=== PATIENT | female | born 1990 | race Hispanic/Latino ===

== ENCOUNTER 2019-10-04 05:17 | Emergency (ER) | payer MEDICAID ==
[2019-10-04 05:34] VITALS: TEMP 95.8
[2019-10-04] MEDS ORDERED: SODIUM CHL 0.9% 50ML VIAL 9 ML, ALBUTEROL SULFATE NEBS 7.5 MG, IPRATROPIUM BROMIDE NEBS... NEB ONE ×3 (05:40)
[2019-10-04] MEDS ORDERED: ALBUTEROL SULFATE 2.5 MG/3 ML VIAL NEB ONE (05:46)
[2019-10-04] MEDS ORDERED: IPRATROPIUM/ALBUTEROL 3 ML VIAL NEB ONE (05:46)
[2019-10-04] MEDS ORDERED: SODIUM CHLORIDE 0.9% NEB 3 ML VIAL ONE (05:47)
[2019-10-04 06:45] VITALS: BP 114/69; O2SAT 98
--- NOTE | 2019-10-04 06:47 | ED.PDOC ---
History of Present Illness - General Chief Complaint: Respiratory Problem Stated Complaint: short of breath Time Seen by Provider: 10/04/19 05:40 Source: patient, RN notes reviewed, Vital Signs reviewed Exam Limitations: no limitations - History of Present Illness Initial Comments: Patient is a 29-year-old female with a history of diabetes and asthma. Patient awoke last night because of shortness of breath. She had been wheezing for the last 2 days. No known triggers at this time. Patient ran out of her asthma meds and does not have medicine to refill them at this time. Timing/Duration: days - 2, constant, getting worse Severity: moderate Activities at Onset: none Possible Cause: frequent episodes Improving Factors: medication - Albuterol Associated Symptoms: cough Respiratory Risk Factors: no cause identified Allergies/Adverse Reactions: Allergies NO KNOWN ALLERGY Allergy (Verified 10/04/19 05:32) Home Medications: Ambulatory Orders Glimepiride 10/04/19 Metformin HCl 10/04/19 Review of Systems - Review of Systems Constitutional: States: no symptoms reported, see HPI EENTM: States: no symptoms reported Respiratory: States: see HPI, cough, short of breath, wheezing Cardiology: States: no symptoms reported Gastrointestinal/Abdominal: States: no symptoms reported Genitourinary: States: no symptoms reported Musculoskeletal: States: no symptoms reported Skin: States: no symptoms reported Neurological: States: no symptoms reported Endocrine: States: no symptoms reported All other Systems: Reviewed and Negative Past Medical History (General) - Patient Medical History Hx Asthma: Yes Hx Diabetes: Yes - Vaccination History Hx Influenza Vaccination: No - Female History Patient is a Female of Child Bearing Age (10 -59 yrs old): Yes Patient : - unsure Family Medical History - Family History Father Family History: Unknown Physical Exam - Physical Exam General Appearance: Alert, Anxious, Well Developed, Well Groomed, Well Hydrated, Well Nourished Eyes, Ears, Nose, Throat Exam: PERRL/EOMI, normal ENT inspection, pharynx normal Neck: non-tender, full range of motion, supple, normal inspection Respiratory: respiratory distress - Mild, decreased breath sounds, wheezing Cardiovascular/Chest: normal peripheral pulses, regular rate, rhythm, no edema, no gallop, no JVD, no murmur Peripheral Pulses: radial,right: 2+, radial,left: 2+ Gastrointestinal/Abdominal: normal bowel sounds, non tender, soft Extremity: normal range of motion, non-tender, normal inspection, no pedal edema, no calf tenderness Neurologic: agency development manager II-XII nml as tested, no motor/sensory deficits, alert, normal mood/affect, oriented x 3 Skin Exam: normal color, warm/dry Lymphatic: no adenopathy Progress - Progress Progress: Differential diagnosis: Reactive airway disease, asthma exacerbation, COPD, pneumonia among others. 10/04/19 06:48 Patient symptoms have resolved with the breathing treatment. Patient has medications at the pharmacy so I will not prescribe anything additional. I will not prescribe her any steroids as she is diabetic. I discussed the plan of care with the patient and she voices understanding and agreement. Gregory Padilla M.D. #[id number] Departure - Departure Clinical Impression: Asthma exacerbation Qualifiers: Asthma severity: mild Asthma persistence: unspecified Qualified Code(s): J45.901 - Unspecified asthma with (acute) exacerbation Time of Disposition: 06:49 Disposition: Discharge to Home or Self Care Condition: Good Departure Forms: ED Discharge - Pt. Copy, Patient Portal Self Enrollment Instructions: Asthma, Adult (DC) Referrals: Bryson Marc MD [Active Staff] - 1-5 Days Home Medications: Ambulatory Orders Glimepiride 10/04/19 Metformin HCl 10/04/19
== END 2019-10-04 06:54 | disposition home or self-care (01) ==
LOC: ER 05:17
DX: J45.901 Unspecified asthma with (acute) exacerbation (principal); E11.9 Type 2 diabetes mellitus without complications; Z79.899 Other long term (current) drug therapy; Z79.84 Long term (current) use of oral hypoglycemic drugs
CPT/HCPCS: A4216; J7611; J7620

== ENCOUNTER 2019-10-25 18:48 | Emergency (ER) | payer MEDICAID ==
[2019-10-25 19:10] VITALS: BP 107/74; TEMP 96.7; O2SAT 96
--- NOTE | 2019-10-25 19:40 | ED.PDOC ---
History of Present Illness - General Chief Complaint: Respiratory Problem Stated Complaint: light cough, sore throat Time Seen by Provider: 10/25/19 18:54 Source: patient Exam Limitations: no limitations - History of Present Illness Initial Comments: The patient is a 29-year-old female presented emergency room secondary to sore throat with mild runny nose and mild cough. It started yesterday. Low- grade fevers. No nausea vomiting or diarrhea. No syncope. She does have asthma and is having a very mild exacerbation. But she does have medications for this at home. Timing/Duration: 24 hours Severity: mild Improving Factors: nothing Worsening Factors: nothing Associated Symptoms: cough, malaise Allergies/Adverse Reactions: Allergies NO KNOWN ALLERGY Allergy (Verified 10/04/19 05:32) Home Medications: Ambulatory Orders Glimepiride 10/04/19 Metformin HCl 10/04/19 Review of Systems - Review of Systems Constitutional: States: fever, malaise EENTM: States: nose congestion, throat pain Respiratory: States: cough, short of breath Cardiology: States: no symptoms reported Gastrointestinal/Abdominal: States: no symptoms reported Genitourinary: States: no symptoms reported Musculoskeletal: States: no symptoms reported Skin: States: no symptoms reported Neurological: States: no symptoms reported Endocrine: States: no symptoms reported All other Systems: No Change from Baseline Past Medical History (General) - Patient Medical History Hx Asthma: Yes Hx Diabetes: Yes - Vaccination History Hx Tetanus, Diphtheria Vaccination: No Hx Influenza Vaccination: No Hx Pneumococcal Vaccination: No - Social History Hx Tobacco Use: No Hx Alcohol Use: No - Female History Patient : - unsure Family Medical History - Family History Father Family History: Unknown Physical Exam - Physical Exam General Appearance: Alert, Comfortable, No apparent distress Eye Exam: bilateral normal Ears, Nose, Throat: hearing grossly normal, nasal congestion, pharyngeal erythema Neck: full range of motion, supple Respiratory: lungs clear, no respiratory distress, no accessory muscle use, wheezing - Occasional scattered wheezing. Good air movement. Cardiovascular/Chest: normal peripheral pulses, regular rate, rhythm, no edema Peripheral Pulses: radial,right: 2+, radial,left: 2+ Gastrointestinal/Abdominal: non tender, soft Rectal Exam: deferred Back Exam: normal inspection Extremity: normal range of motion, normal inspection, normal capillary refill Neurologic: renewal specialist II-XII nml as tested, alert, normal mood/affect, oriented x 3 Skin Exam: normal color Comments: Vital Signs - 24 hr 10/25/19 19:03 Temperature 96.7 F L Pulse Rate [ 94 H left] Respiratory 18 Rate Blood Pressure 107/74 [left] O2 Sat by Pulse 96 Oximetry Progress - Progress Progress: 10/25/19 19:41 The patient is a 29-year-old female presenting with what appears to be a viral pharyngitis. She has tested negative for strep and flu here today. She needs to keep her self well-hydrated. She is contagious. Tylenol and Chloraseptic spray can be used symptoms. She does need to continue her asthma medications for her asthma. ER warnings are given. Keep routine follow-up with primary care doctor. [email or web address] hays [phone] 10/25/19 19:43 Departure - Departure Clinical Impression: Viral pharyngitis Disposition: Discharge to Home or Self Care Condition: Fair Departure Forms: ED Discharge - Pt. Copy, Patient Portal Self Enrollment Instructions: Sore Throat, Adult (DC) Diet: regular diet Activity: increase activity as tolerated Referrals: UNKNOWN,PHYSICIAN [Primary Care Provider] - 1-2 Weeks Home Medications: Ambulatory Orders Glimepiride 10/04/19 Metformin HCl 10/04/19 Additional Instructions: The patient is a 29-year-old female presenting with what appears to be a viral pharyngitis. She has tested negative for strep and flu here today. She needs to keep her self well-hydrated. She is contagious. Tylenol and Chloraseptic spray can be used symptoms. She does need to continue her asthma medications for her asthma. ER warnings are given. Keep routine follow-up with primary care doctor.
== END 2019-10-25 19:50 | disposition home or self-care (01) ==
LOC: ER 18:48
DX: J02.9 Acute pharyngitis, unspecified (principal); J45.909 Unspecified asthma, uncomplicated; E11.9 Type 2 diabetes mellitus without complications; Z79.899 Other long term (current) drug therapy